=== PATIENT | female | born 1945 ===

== ENCOUNTER 2021-03-01 07:27 | Emergency (ER) | payer MEDICARE ==
[~2021-03-01] VITALS: Ht 154.9 cm; Wt 50.8 kg
[2021-03-01 08:21] VITALS: BP 168/77
== END 2021-03-01 09:34 | disposition home or self-care (01) ==
LOC: ER 07:27
DX: R91.1 Solitary pulmonary nodule (principal); E04.1 Nontoxic single thyroid nodule
CPT/HCPCS: 71250; 93005